=== PATIENT | male | born 1955 | race Caucasian/White ===

== ENCOUNTER 2021-12-25 09:54 | Emergency (ER) | payer MEDICARE ==
[~2021-12-25] VITALS: Ht 175.3 cm; Wt 90.9 kg
[~2021-12-25 09:54] MED LIST: HYDR-3972 PO; LISI20TA28 PO; TRIA1CAP88 PO
[2021-12-25] MEDS ORDERED: ondansetron/PF 4mg/2ml inj IV ONE (10:15)
[2021-12-25] MEDS ORDERED: morphine 4 MG/ML inj SYRINge IV ONE ×2 (10:15→12:00)
[2021-12-25] MEDS ORDERED: normal saline 1000ml 1,000 ML IV ONE (10:15)
[2021-12-25 10:32] LABS: HEMOGLOBIN 15.4 g/dl (14.0-17.9); LYMPHOCYTES # (AUTO) 0.8 X10'3 (1.1-4.8); LYMPHOCYTES % (AUTO) 15.3 % (21-51); MEAN PLATELET VOLUME 8.3 FL (7.4-10.4); WHITE BLOOD COUNT 5.1 X10'3 (4.5-11.0)
[2021-12-25 10:34] LABS: BASOPHILS % (AUTO) 0.6 % (0-1); EOSINOPHILS # (AUTO) 0.2 X10'3 (0-0.9); EOSINOPHILS % (AUTO) 3.9 % (0-6); MEAN CORPUSCULAR HGB CONC 33.6 g/dL (33.0-36.5); MEAN CORPUSCULAR VOLUME 92.3 FL (78-98); MONOCYTES # (AUTO) 0.4 X10'3 (0-0.9); MONOCYTES % (AUTO) 7.6 % (2-12); NEUTROPHILS # (AUTO) 3.7 X10'3 (1.8-7.7); NEUTROPHILS % (AUTO) 72.6 % (42-75); PLATELET COUNT 170 X10'3 (140-440); RED BLOOD COUNT 4.98 X10'6 (4.70-6.10); RED CELL DISTRIBUTION WIDTH 13.6 % (11.5-14.5)
[2021-12-25 10:41] LABS: CLARITY,URINE TURBID (Clear); COLOR,URINE YELLOW (Yellow); GLUCOSE, URINE NEGATIVE (Neg); KETONES,URINE NEGATIVE (Neg); LEUKOCYTE ESTERASE ,URINE NEGATIVE (Neg); NITRITES, URINE NEGATIVE (Neg); OCCULT BLOOD,URINE LARGE (Neg); PH,URINE 5.5 (4.8-8.0); PROTEIN,URINE 30 mg/dl (Neg); UROBILINOGEN,URINE 0.2 E.U/dL (0.2-1.0)
[2021-12-25 10:45] LABS: UA COLLECTION TYPE CLN CATCH MIDSTREAM
--- NOTE | 2021-12-25 10:46 | NUR ---
pt to ct
[2021-12-25 10:50] LABS: ALANINE AMINOTRANSFERASE 27 U/L (12-78); ALBUMIN 4.1 G/DL (3.4-5.0); ALBUMIN/GLOBULIN RATIO 1.3 (1.1-1.5); ALKALINE PHOSPHATASE 66 IU/L (46-116); ANION GAP 11 (8-16); ASPARTATE AMINO TRANSFERASE 19 U/L (10-37); BILIRUBIN,TOTAL 0.9 MG/DL (0.1-1.0); BLOOD UREA NITROGEN 21 MG/DL (7-18); BUN/CREATININE RATIO 16.8 (5.4-32.0); CALCIUM 9.1 MG/DL (8.5-10.1); CHLORIDE 108 MMOL/L (99-107); CREATININE 1.25 MG/DL (0.60-1.10); GLUCOSE 120 MG/DL (70-104); LIPASE 64 U/L (73-393); SODIUM 142 MMOL/L (135-145); TOTAL CARBON DIOXIDE 22.7 MMOL/L (24-32); TOTAL PROTEIN 7.3 G/DL (6.4-8.2); eGFR 57 ML/MIN
--- NOTE | 2021-12-25 10:57 | NUR ---
back from ct
[2021-12-25 11:05] LABS: BACTERIA,URINE FEW /HPF (Neg); RBC,URINE TNTC /HPF (0-2)
[2021-12-25 11:06] LABS: MUCUS STRANDS MODERATE /LPF (Neg); SQUAMOUS EPITHELIAL CELL,UR FEW /LPF (FEW)
[2021-12-25] MEDS ORDERED: ketorolac trometh. 30mg/ml inj. IV ONE (11:10)
[2021-12-25] MEDS ORDERED: tamsulosin 0.4mg capsule PO STA (11:40)
[2021-12-25 11:42] VITALS: BP 166/96
[2021-12-25] MEDS ORDERED: OXYC-138 PO ×2 (12:58→17:43)
[2021-12-25] MEDS ORDERED: ONDA4TAB12 PO ×2 (12:58)
[2021-12-25] MEDS ORDERED: SILO4CAP3 PO ×2 (12:58)
[2021-12-25] MEDS ORDERED: ondansetron 4mg rapidly disintigrating tab PO ONE (13:00)
[2021-12-25] MEDS ORDERED: oxyCODONE/APAP 10/325mg tablet PO ONE (13:00)
== END 2021-12-25 13:16 | disposition home or self-care (01) ==
LOC: ER 09:55
DX: N20.0 Calculus of kidney (principal); R11.2 Nausea with vomiting, unspecified; R10.32 Left lower quadrant pain; Z88.8 Allergy status to other drugs, medicaments and biological substances; Z79.899 Other long term (current) drug therapy
CPT/HCPCS: 36415; 74176; 80053; 81001; 83690; 85025; 87088; 96361; 96374; 96375; 96376; 99284; J1885; J2270; J2405; J7030

== ENCOUNTER 2021-12-29 14:02 | Inpatient (IN) | payer MEDICARE ==
[2021-12-29] VITALS (7 sets, daily range): BP systolic 106–140; BP diastolic 74–94
[~2021-12-29] VITALS: Ht 175.3 cm; Wt 90.9 kg
[~2021-12-29 14:02] MED LIST changes: +ONDA4TAB12 PO; +OXYC-138 PO; +SILO4CAP3 PO
[2021-12-29] MEDS ORDERED: normal saline 1000ML IV soln IVB ONE (15:05)
[2021-12-29] MEDS ORDERED: ketorolac trometh. 30mg/ml inj. IV ONE (15:05)
[2021-12-29 15:50] LABS: ANION GAP 8 (8-16); CHLORIDE 100 MMOL/L (99-107); GLUCOSE 130 MG/DL (70-104); POTASSIUM 4.3 MMOL/L (3.5-5.1); SODIUM 136 MMOL/L (135-145)
[2021-12-29 15:51] LABS: ALANINE AMINOTRANSFERASE 20 U/L (12-78); ALBUMIN 3.8 G/DL (3.4-5.0); ALKALINE PHOSPHATASE 62 IU/L (46-116); ASPARTATE AMINO TRANSFERASE 15 U/L (10-37); BILIRUBIN,TOTAL 0.8 MG/DL (0.1-1.0); BLOOD UREA NITROGEN 18 MG/DL (7-18); BUN/CREATININE RATIO 11.1 (5.4-32.0); CREATININE 1.62 MG/DL (0.60-1.10); TOTAL PROTEIN 7.5 G/DL (6.4-8.2); eGFR 43 ML/MIN
[2021-12-29 16:16] LABS: BASOPHILS % (AUTO) 0.5 % (0-1); EOSINOPHILS % (AUTO) 0.2 % (0-6); HEMATOCRIT 40.1 % (42.0-52.0); HEMOGLOBIN 13.6 g/dl (14.0-17.9); LYMPHOCYTES # (AUTO) 0.4 X10'3 (1.1-4.8); LYMPHOCYTES % (AUTO) 5.4 % (21-51); MEAN CORPUSCULAR HEMOGLOBIN 31.2 PG (27.0-31.0); MEAN CORPUSCULAR HGB CONC 33.9 g/dL (33.0-36.5); MEAN PLATELET VOLUME 7.7 FL (7.4-10.4); MONOCYTES # (AUTO) 0.9 X10'3 (0-0.9); MONOCYTES % (AUTO) 11.5 % (2-12); NEUTROPHILS # (AUTO) 6.2 X10'3 (1.8-7.7); NEUTROPHILS % (AUTO) 82.4 % (42-75); PLATELET COUNT 157 X10'3 (140-440); RED BLOOD COUNT 4.35 X10'6 (4.70-6.10); RED CELL DISTRIBUTION WIDTH 13.6 % (11.5-14.5); WHITE BLOOD COUNT 7.5 X10'3 (4.5-11.0)
[2021-12-29 17:34] LABS: CLARITY,URINE CLEAR (Clear); GLUCOSE, URINE NEGATIVE (Neg); KETONES,URINE NEGATIVE (Neg); LEUKOCYTE ESTERASE ,URINE NEGATIVE (Neg); NITRITES, URINE NEGATIVE (Neg); OCCULT BLOOD,URINE MODERATE (Neg); PH,URINE 5.5 (4.8-8.0); PROTEIN,URINE NEGATIVE (Neg); UROBILINOGEN,URINE 0.2 E.U/dL (0.2-1.0)
[2021-12-29 17:37] LABS: COLOR,URINE STRAW (Yellow); UA COLLECTION TYPE CLN CATCH MIDSTREAM
[2021-12-29 17:40] LABS: BACTERIA,URINE NONE SEEN /HPF (Neg); MUCUS STRANDS NONE SEEN /LPF (Neg); RBC,URINE 0-2 /HPF (0-2); SQUAMOUS EPITHELIAL CELL,UR NONE SEEN /LPF (FEW); WBC,URINE 0-4 /HPF (0-4)
[2021-12-29] MEDS ORDERED: CefTRIAXone 2gm/D5W 50ml BAG 50 ML IV ONE (17:40)
[2021-12-29] MEDS ORDERED: HYDROcodone/acetaminophen 5mg/325mg tablet PO PRN (18:30)
[2021-12-29] MEDS ORDERED: magnesium Cl slow-release 64mg tablet PO PRN (18:30)
[2021-12-29] MEDS ORDERED: HYDROcodone/acetaminophen 10/325mg tab PO PRN (18:30)
[2021-12-29] MEDS ORDERED: magnesium 2GM in 50ml NS 50 ML IV PRN (18:30)
[2021-12-29] MEDS ORDERED: acetaminophen 650mg rectal suppository RC PRN (18:30)
[2021-12-29] MEDS ORDERED: potassium CL 10mEq/100ml bag 100 ML IV PRN (18:30)
[2021-12-29] MEDS ORDERED: POTASSIUM BICARB 20meq eff tab 20 MEQ TABLET.EFF PO PRN ×2 (18:30)
[2021-12-29] MEDS ORDERED: morphine 2 MG/ML inj. syringe IV PRN ×3 (18:30→19:00)
[2021-12-29] MEDS ORDERED: mag hydrox/Alum hydrox/simeth 30ml oral suspension PO PRN (18:30)
[2021-12-29] MEDS ORDERED: bisacodyl 10mg suppository rectal RC PRN (18:30)
[2021-12-29] MEDS ORDERED: acetaminophen 325mg tablet PO PRN ×2 (18:30)
[2021-12-29] MEDS ORDERED: magnesium hydroxide 30ml (MOM) UD suspension PO PRN (18:30)
[2021-12-29] MEDS ORDERED: diphenhydrAMINE 25mg capsule PO PRN (18:30)
[2021-12-29] MEDS ORDERED: magnesium 4gm in 100ml NS 100 ML IV PRN (18:30)
[2021-12-29] MEDS ORDERED: ondansetron/PF 4mg/2ml inj IV PRN ×2 (18:30→19:00)
[2021-12-29] MEDS: normal saline 1000ml 1,000 ML IV SCH (18:44)
[2021-12-29 18:48] LABS: HEMOGLOBIN A1C 5.8 % (4.5-6.2)
[2021-12-29] MEDS ORDERED: hydrALAZINE 20mg/ml inj. IV ONE (18:50)
[2021-12-29] MEDS ORDERED: hydrALAZINE 20mg/ml inj. IV PRN ×2 (18:50→19:00)
[2021-12-29] MEDS ORDERED: FLO0.4C PO (18:59)
[2021-12-29] MEDS ORDERED: CA C1TAB70 PO (18:59)
[2021-12-29] MEDS ORDERED: VALS80TA32 PO (18:59)
[2021-12-29] MEDS ORDERED: labetalol 20mg/4ml (5mg/ml) syringe IV PRN (19:00)
[2021-12-29] MEDS ORDERED: morphine 4 MG/ML inj SYRINge IV PRN (19:00)
[2021-12-29] MEDS ORDERED: fentaNYL/PF 50MCG/1 ML 2ML syringe IV PRN ×2 (19:00)
[2021-12-29] MEDS ORDERED: ringers solution, lacted 1,000 ML IV SCH (19:00)
[2021-12-29] MEDS ORDERED: K and/or MAG REPLACEMENT MC SCH (20:00)
[2021-12-29] MEDS: docusate sod 100mg capsule PO SCH (20:42)
[2021-12-29] MEDS ORDERED: losartan 50mg tablet PO SCH (21:00)
[2021-12-29] MEDS ORDERED: ALOE PO SCH (21:00)
[2021-12-29] MEDS ORDERED: CHOLECALCIFEROL PO SCH (21:00)
[2021-12-29] MEDS ORDERED: triamterene/HCTZ 37.5/25mg tablet PO SCH (21:00)
[2021-12-29] MEDS ORDERED: iohexol 350MG/ML 100ml bottle IV ONE (21:56)
[2021-12-29] MEDS ORDERED: HYDR-3965 PO (22:12)
[2021-12-29] MEDS ORDERED: CEPH500C2 PO (22:12)
[2021-12-29] MEDS ORDERED: sevoflurane 250ml liquid IH ONE (22:22)
[2021-12-29] MEDS ORDERED: dexamethasone sod phosphate 10mg/ml inj ONE (22:22)
[2021-12-29] MEDS ORDERED: fentaNYL/PF 50MCG/1 ML 2ML syringe ONE (22:26)
[2021-12-29] MEDS ORDERED: ceFAZolin 1000mg inj ONE ×2 (22:27)
[2021-12-29] MEDS ORDERED: ondansetron/PF 4mg/2ml inj ONE (22:27)
[2021-12-29] MEDS ORDERED: propofol inj 20 ML IV ONE (22:27)
[2021-12-29] MEDS ORDERED: LIDOcaine 2% (20mg/ml) 5ml vial ONE (22:27)
--- NOTE | 2021-12-29 22:53 | NUR ---
Received from OR via BED, accompanied by Anesthesiologist DR LOCKHART and report given by Anesthesiologist AND ZIPPER SETTER LOCKSTITCH. PT DROWSY, NO S/S OF DISTRESS/DISCOMFORT. NO DRAINS OR DRSG'S. Addendum: 12/29/21 at 2313 by Dayami Miguel RN Amended: Links added.
[2021-12-30] VITALS (10 sets, daily range): BP systolic 118–167; BP diastolic 73–97
--- NOTE | 2021-12-30 00:13 | NUR ---
PER DR MUJICA PT WAS TO BE D/CD TO HOME AND ER MD WAS GOING TO SEND IN POST OP PRESCRIPTIONS. PT D/C INSTRUCTIONS GIVEN AND GONE OVER W/PT AND PTS WHO VERBALIZED UNDERSTANDING. PTS IV DC'D. TRANSPORTED PT DOWN TO PARKING LOT FOR D/C HOME, PTS DAUGHTER WHO WORKS IN OUR ER CAME OUT AND MET US, SHE INFORMED ME THAT THE HOSPITALIST HAD ADMITTED PT AND SHE SPOKE W/HIM AND THAT THE PT IS TO BE ADMITTED AND NOT D/CD TO HOME. BROUGHT PT BACK TO PACU AND CALLED Report to receiving nurse. Transferred via W/C W/CLOTHING ON AND CELL PHONE. RECEIVING RN AT BEDSIDE TO RECEIVE PT. Special Issues communicated to receiving nurse. YES. Addendum: 12/30/21 at 0022 by Dayami Miguel RN Amended: Links added.
--- NOTE | 2021-12-30 00:29 | NUR ---
Patient in room ORTHO 4015. I have received report from NANCY Stock and had the opportunity to ask questions and assume patient care.
[2021-12-30] MEDS: normal saline 1000ml 1,000 ML IV SCH ×2 (01:01→09:20)
--- NOTE | 2021-12-30 06:23 | NUR ---
Problems reprioritized. Patient report given, questions answered & plan of care reviewed with NANCY Sanchez.
[2021-12-30 06:37] LABS: ALANINE AMINOTRANSFERASE 43 U/L (12-78); ALBUMIN 3.2 G/DL (3.4-5.0); ALBUMIN/GLOBULIN RATIO 0.9 (1.1-1.5); ALKALINE PHOSPHATASE 82 IU/L (46-116); ANION GAP 8 (8-16); ASPARTATE AMINO TRANSFERASE 31 U/L (10-37); BILIRUBIN,TOTAL 0.4 MG/DL (0.1-1.0); BLOOD UREA NITROGEN 18 MG/DL (7-18); BUN/CREATININE RATIO 15.8 (5.4-32.0); CALCIUM 8.5 MG/DL (8.5-10.1); CHLORIDE 106 MMOL/L (99-107); CHOL/HDL RATIO 2.6 (0.00-4.99); CHOLESTEROL 142 MG/DL (0-200); CREATININE 1.14 MG/DL (0.60-1.10); GLUCOSE 174 MG/DL (70-104); HDL CHOLESTEROL 54 MG/DL (35-60); LDL CHOLESTEROL 72 MG/DL (50-100); MAGNESIUM 2.3 MG/DL (1.5-2.4); PHOSPHORUS 2.3 MG/DL (2.3-4.5); POTASSIUM 4.7 MMOL/L (3.5-5.1); SODIUM 141 MMOL/L (135-145); TOTAL CARBON DIOXIDE 27.1 MMOL/L (24-32); TOTAL PROTEIN 6.8 G/DL (6.4-8.2); TRIGLYCERIDES 57 MG/DL (20-135); eGFR 64 ML/MIN
--- NOTE | 2021-12-30 07:33 | NUR ---
Patient in room ORTHO 4014. I have received report from Nathalie and had the opportunity to ask questions and assume patient care.
[2021-12-30 07:54] LABS: BASOPHILS % (AUTO) 0.1 % (0-1); EOSINOPHILS % (AUTO) 0 % (0-6); HEMATOCRIT 43.3 % (42.0-52.0); HEMOGLOBIN 14.7 g/dl (14.0-17.9); LYMPHOCYTES # (AUTO) 0.3 X10'3 (1.1-4.8); LYMPHOCYTES % (AUTO) 5.9 % (21-51); MEAN CORPUSCULAR HEMOGLOBIN 31.3 PG (27.0-31.0); MEAN CORPUSCULAR VOLUME 92.1 FL (78-98); MONOCYTES # (AUTO) 0.2 X10'3 (0-0.9); MONOCYTES % (AUTO) 2.9 % (2-12); NEUTROPHILS # (AUTO) 5.4 X10'3 (1.8-7.7); NEUTROPHILS % (AUTO) 91.1 % (42-75); RED CELL DISTRIBUTION WIDTH 13.6 % (11.5-14.5); WHITE BLOOD COUNT 5.9 X10'3 (4.5-11.0)
[2021-12-30 07:56] LABS: PLATELET COUNT 136 X10'3 (140-440)
[2021-12-30] MEDS ORDERED: tamsulosin 0.4mg capsule PO SCH (08:00)
[2021-12-30] MEDS ORDERED: CefTRIAXone/D5W-Rocephin 1gm 50 ML IV SCH (08:00)
[2021-12-30] MEDS: docusate sod 100mg capsule PO SCH (08:46)
[2021-12-30] MEDS ORDERED: CEFD300C3 PO (12:01)
[2021-12-30] MEDS ORDERED: LACT1CAP55 PO (12:01)
--- NOTE | 2021-12-30 12:30 | NUR ---
Patient discharged at this time. Patient taught about his antibiotics and to follow up with Dr. Hayes and pcp as Dr. Black ordered. Patient states he still has 25 norco at home that he just got filled last week,; (family was asking for norco order) Also daughter Jillian took patient wallet this morning.
== END 2021-12-30 12:30 | disposition home or self-care (01) | DRG 661 ==
LOC: ER 14:02 → ED HOLD 18:31 → ORTHO 4S 12-30 00:25
PROVIDERS: ADMIT Family Medicine; ATTEND Family Medicine
PROC: BT1F1ZZ Fluoroscopy of Left Kidney, Ureter and Bladder using Low Osmolar Contrast (ICD-10-PCS; 2021-12-29)
PROC: 0T778DZ Dilation of Left Ureter with Intraluminal Device, Via Natural or Artificial Opening Endoscopic (ICD-10-PCS; principal; 2021-12-29 22:22)
DX: N13.2 Hydronephrosis with renal and ureteral calculous obstruction (principal); G89.4 Chronic pain syndrome; N17.9 Acute kidney failure, unspecified; I10 Essential (primary) hypertension; K76.0 Fatty (change of) liver, not elsewhere classified; F17.290 Nicotine dependence, other tobacco product, uncomplicated; N40.0 Benign prostatic hyperplasia without lower urinary tract symptoms; Z20.822 Contact with and (suspected) exposure to COVID-19; Z79.899 Other long term (current) drug therapy; Z82.3 Family history of stroke; Z82.49 Family history of ischemic heart disease and other diseases of the circulatory system; Z82.5 Family history of asthma and other chronic lower respiratory diseases; Z87.442 Personal history of urinary calculi; Z90.79 Acquired absence of other genital organ(s); Z88.8 Allergy status to other drugs, medicaments and biological substances; Z86.16 Personal history of COVID-19
CPT/HCPCS: 36415; 74176; 74420; 76000; 80053; 80061; 81001; 82948; 83036; 83605; 83735; 84100; 85025; 87040; 87081; 87811; 96374; 97161; 97530; 99285; A4215; A4618; C1758; C2617; G0378; J0360; J0690; J0696; J1100; J1885; J2405; J2704; J3010; J3490; J7030; J7120; Q9967

== ENCOUNTER 2024-08-10 21:08 | Emergency (ER) | payer MEDICARE ==
[~2024-08-10] VITALS: Ht 175.3 cm; Wt 95.4 kg
[~2024-08-10 21:08] MED LIST changes: +CA C1TAB70 PO; -HYDR-3972 PO; +LACT1CAP55 PO; -LISI20TA28 PO; -ONDA4TAB12 PO; -SILO4CAP3 PO; +TAMS-55 PO; +VALS80TA32 PO
[2024-08-10] MEDS: HYDROcodone/acetaminophen 10/325mg tab PO ONE (23:26)
[2024-08-10] MEDS: ketorolac trometh 15mg/ml vial 15 MG/ML ML IM ONE (23:27)
[2024-08-10] MEDS ORDERED: NAPR-1168 PO (23:49)
[2024-08-10] MEDS ORDERED: HYDR-3965 PO (23:49)
[2024-08-11 00:04] VITALS: BP 147/97; PULSE 88; RESP 19; O2SAT 100
== END 2024-08-11 00:08 | disposition home or self-care (01) ==
LOC: ER 21:08
DX: M25.461 Effusion, right knee (principal); I10 Essential (primary) hypertension; Z87.442 Personal history of urinary calculi; Z87.440 Personal history of urinary (tract) infections
CPT/HCPCS: 96372; 99283; J1885

== ENCOUNTER 2024-08-25 23:02 | Emergency (ER) | payer MEDICARE ==
[~2024-08-25] VITALS: Ht 175.3 cm; Wt 78.2 kg
[~2024-08-25 23:02] MED LIST changes: +HYDR-3965 PO; +NAPR-1168 PO
[2024-08-25 23:33] VITALS: TEMP 97.6
[2024-08-25 23:52] LABS: BASOPHILS # (AUTO) 0.1 X10'3 (0-0.2); BASOPHILS % (AUTO) 0.9 % (0-1); EOSINOPHILS # (AUTO) 0.3 X10'3 (0-0.9); EOSINOPHILS % (AUTO) 4.9 % (0-6); HEMATOCRIT 41.8 % (42.0-52.0); HEMOGLOBIN 14.7 g/dl (14.0-17.9); LYMPHOCYTES # (AUTO) 1.6 X10'3 (1.1-4.8); LYMPHOCYTES % (AUTO) 26.8 % (21-51); MEAN CORPUSCULAR HEMOGLOBIN 32.3 PG (27.0-31.0); MEAN CORPUSCULAR HGB CONC 35.2 g/dL (33.0-36.5); MEAN CORPUSCULAR VOLUME 91.7 FL (78-98); MEAN PLATELET VOLUME 7.6 FL (7.4-10.4); MONOCYTES # (AUTO) 0.5 X10'3 (0-0.9); MONOCYTES % (AUTO) 7.9 % (2-12); NEUTROPHILS # (AUTO) 3.6 X10'3 (1.8-7.7); NEUTROPHILS % (AUTO) 59.5 % (42-75); PLATELET COUNT 189 X10'3 (140-440); RED BLOOD COUNT 4.56 X10'6 (4.70-6.10); RED CELL DISTRIBUTION WIDTH 13.6 % (11.5-14.5)
[2024-08-26 00:06] LABS: ALANINE AMINOTRANSFERASE 32 U/L (12-78); ALBUMIN 4.1 G/DL (3.4-5.0); ALBUMIN/GLOBULIN RATIO 1.3 (1.1-1.5); ALKALINE PHOSPHATASE 71 IU/L (46-116); ANION GAP 9 (8-16); ASPARTATE AMINO TRANSFERASE 22 U/L (10-37); BILIRUBIN,TOTAL 0.7 MG/DL (0.1-1.0); BLOOD UREA NITROGEN 25 MG/DL (7-18); BUN/CREATININE RATIO 19.4 (10.0-20.0); CALCIUM 8.7 MG/DL (8.5-10.1); CHLORIDE 107 MMOL/L (99-107); CREATININE 1.29 MG/DL (0.60-1.10); GLUCOSE 126 MG/DL (70-104); LIPASE 39 U/L (16-77); POTASSIUM 3.7 MMOL/L (3.5-5.1); SODIUM 144 MMOL/L (135-145); TOTAL CARBON DIOXIDE 27.6 MMOL/L (24-32); TOTAL PROTEIN 7.2 G/DL (6.4-8.2); eCRCL 53 ML/MIN; eGFR 55 ML/MIN
[2024-08-26 00:07] LABS: CLARITY,URINE BLOODY (Clear); COLOR,URINE RED (Yellow); UA COLLECTION TYPE CLN CATCH MIDSTREAM
[2024-08-26 00:11] LABS: BACTERIA,URINE NONE SEEN /HPF (Neg); RBC,URINE TNTC /HPF (0-2); SQUAMOUS EPITHELIAL CELL,UR NONE SEEN /LPF (FEW); WBC,URINE 0-4 /HPF (0-4)
[2024-08-26] MEDS ORDERED: iohexol 300mg/ml 100ml inj. ONE (02:24)
--- NOTE | 2024-08-26 03:52 | Physician Documentation ---
History of Present Illness ~ Chief Complaint: Blood in Urine Stated Complaint: BLOOD IN URINE Time Seen by MD: 01:14 Primary Medical Doctor: judy Mode of Arrival: Ambulatory HPI This is a very pleasant 69-year-old gentleman who comes in for evaluation of hematuria. On and off for the last several days, had some PCP. Was advised to go to the emergency department if the symptoms get worse or continue. He states that while yesterday he apparently had any hematuria, today it appears that he was urinating gross blood. No obvious trigger provocation. It is painless, but there is some discomfort suprapubically. This never happened in the past. He does have history of hypotension, but otherwise does not have any significant medical history and does not take any blood thinners. Denies lightheadedness, chest pain, difficulty breathing. Medication Reconciliation Allergies: Coded Allergies: propoxyphene (Verified Allergy, Unknown, 08/25/24) Scheduled Ca Cmb 1/Vit D3/B-6/FA/B12/Av (Vitamin D3-Aloe 1,000 Unit Tab), 3,000 UNITS PO HS, (Reported) L. Rhamnosus GG/Inulin (Culturelle Capsule), 1 CAP PO DAILY Naproxen (Naproxen), 1 TAB PO Q12H Tamsulosin Hcl* (Flomax*), 0.4 MG PO DAILY, (Reported) Triamterene/Hydrochlorothiazid (Triamterene-Hctz 37.5-25 Mg Cp), 1 TAB PO HS, (Reported) Valsartan (Valsartan), 1 TAB PO HS, (Reported) Scheduled PRN Hydrocodone Bit/Acetaminophen 5/325 MG ([place] 5/325 MG), 1 TAB PO Q6H PRN for pain Oxycodone HCl/Acetaminophen (Endocet 10-325 mg Tablet), 1 TAB PO Q4H PRN for pain Past Medical History Past Medical History: Hypertension, Kidney Stones Past Surgical History: abdominal surgery, orthopedic surgeries Smoking Status: Never smoker Alcohol Use: Rarely Drug Use: none Lives with: Spouse Lives In: Home Occupation: retired Review of Systems ROS 10 point review of systems was performed and unless noted above in HPI is negative for acute process/complaint. Physical Exam Vital Signs: Temperature: 97.6, Source: Temporal, Heart Rate: 76, Respiratory Rate: 16, BP: 136/85, Pulse Oximetry: 99, Weight: 78.250 Physical Exam Physical examination: GENERAL: Awake, alert, oriented, GCS 15, no apparent distress, non-toxic appearing, answers questions, follows commands appropriately. HEENT: Atraumatic, normocephalic, pupils equal, extraocular muscles intact Active gross movements, sclerae anicteric, mucus membranes moist, no stridor. NECK: Midline, no JVD CARDIOVASCULAR: Good skin perfusion without evidence of pallor, mottling. PULMONARY: Nonlabored, symmetric chest rise, no audible wheezing, no accessory muscle use, no respiratory distress, speaking in full sentences. GASTROINTESTINAL: Not distended. NEUROLOGIC: Lucid with normal mental status. Normal facial symmetry. Moves all extremities symmetrically and with purpose. No truncal ataxia. Speech is fluid without evidence of dysarthria or aphasia, no focal deficits appreciated. EXTREMITIES: Acute deformities Skin: warm, dry PSYCHIATRIC: Normal affect, normal insight, normal concentration. Focused exam: [] Progress Results/Orders Results/Orders Orders - GUILLE LORD DO Ct Abdomen Pelvis (08/26/24 02:30) Completed Orders - GUILLE LORD DO Cbc/Diff (08/25/24 23:35) BMP (08/25/24 23:35) Lipase (08/25/24 23:35) CMP (08/25/24 23:35) Ua W/Microscopic, Cult If Ind (08/25/24 23:38) Ct Abdomen Pelvis (08/26/24 02:30) Iohexol 300mg/Ml 100ml Inj. (Omnipaque-3 (08/26/24 02:24) Vital Signs 08/25/24 08/26/24 08/26/24 08/26/24 23:33 01:28 02:30 03:30 Temp 97.6 Pulse 76 69 70 Resp 15 16 14 14 B/P (MAP) 136/85 138/90 (106) 136/85 (102) Pulse Ox 99 99 98 08/26/24 04:37 Pulse 68 Resp 12 B/P (MAP) 132/81 (98) Pulse Ox 98 Laboratory Tests Test 08/25/24 23:38 08/25/24 23:43 Urine Specimen Description Cln catch midstream Urine Color Red Urine Clarity Bloody Urine pH Urine Specific [place] Urine Protein Urine Glucose (UA) Urine Ketones Urine Occult Blood Urine Nitrite Urine Bilirubin Urine Urobilinogen Urine Leukocyte Esterase Urine RBC Tntc Urine WBC 0-4 Urine Squamous Epithelial Cells None seen Urine Bacteria None seen Urine Culture Indicated Not ind Volume Urine Centrifuged 10 ml Urine Comment White Blood Count 6.0 Red Blood Count 4.56 L Hemoglobin 14.7 Hematocrit 41.8 L Mean Corpuscular Volume 91.7 Mean Corpuscular Hemoglobin 32.3 H Mean Corpuscular Hemoglobin Concent 35.2 Red Cell Distribution Width 13.6 Platelet Count 189 Mean Platelet Volume 7.6 Neutrophils (%) (Auto) 59.5 Lymphocytes (%) (Auto) 26.8 Monocytes (%) (Auto) 7.9 Eosinophils (%) (Auto) 4.9 Basophils (%) (Auto) 0.9 Neutrophils # (Auto) 3.6 Lymphocytes # (Auto) 1.6 Monocytes # (Auto) 0.5 Eosinophils # (Auto) 0.3 Basophils # (Auto) 0.1 CBC Comment Sodium Level 144 Potassium Level 3.7 Chloride Level 107 Carbon Dioxide Level 27.6 Anion Gap 9 Blood Urea Nitrogen 25 H Creatinine 1.29 H Estimated GFR/1.73 m2 55 BUN/Creatinine Ratio 19.4 Glucose Level 126 H Calcium Level 8.7 Total Bilirubin 0.7 Aspartate Amino Transf (AST/SGOT) 22 Alanine Aminotransferase (ALT/SGPT) 32 Alkaline Phosphatase 71 Total Protein 7.2 Albumin 4.1 Globulin 3.1 Albumin/Globulin Ratio 1.3 Lipase 39 Chemistry Comments Medical Decision Making Findings Facility Status: ED [facility], [facility] process The plan was discussed with the patient, who demonstrates clear understanding of the plan and is in agreement with the plan unless otherwise noted in the chart. All questions have been answered, all concerns were addressed unless otherwise documented. I was available throughout their ED stay for frequent reassessment and questions. Differential Diagnoses (considered and possible or likely): [Idiopathic hematuria, UTI/hemorrhagic cystitis, bladder tumor, renal cancer, given painless nature kidney stone is less likely, renal trauma is unlikely as none was reported by the patient] ??Differential Diagnoses (considered and unlikely, not requiring evaluation currently): [See above] MDM Data Please see HPI for the following: Independent Historians and external Records Review. Historian: [Patient] Independent Historians: ?[] Medication Management: [Reviewed medication list] Social History and determinants: [Reviewed] Please see the body of the note for the following: Any independent interpretations of ECG, imaging studies. All vitals signs/haemodynamics, ordered tests were independently reviewed and interpreted by myself. Nursing triage complaint and vitals reviewed, additional nursing notes were reviewed as available and I agree unless otherwise noted or documented in contradiction in the chart Vital Signs: Independently reviewed Labs: Independently interpreted Imaging: Independently interpreted Old Medical Records: Independently reviewed, see HPI for relevant summary and information Pulse Oximetry: [95%] interpreted as [normal on room air] by me [Dog Or Animal Sitter: Bradycardic Rate, Regular rhythm, no ectopy, NSR] reviewed and interpreted by me] Additionally notably showing: [Hemodynamically the patient is stable. Laboratory workup notable for gross hematuria. Otherwise unremarkable. CT imaging shows no explanation for gentleman was hematuria. Incidentally prostatomegaly noted as expected. Tests considered but not ordered include: [Not applicable] Social Determinants of Health Impact: Patient was evaluated in [facility], [facility] [place] access to healthcare due to below par ratio of patient to medical providers. [] Comorbid Conditions Impacting Present Evaluation and Care/Treatment: [None reported patient] Management Discussions with other Healthcare Providers: [] Treatment and Disposition Medication Management (Given or considered): []. See EMR for details Consideration for Hospitalization/Escalation/Deescalation of Care: Admission for observation has been considered, [however the patient is able to tolerate p.o., their symptoms are controlled, they are able to rely on oral medications, and their chief complaint/diagnosis can be managed on outpatient basis.] ?ED Course:?[No clinical deterioration. Patient will be discharged home with a referral entry.] ?Shared decision making:? Patient is hemodynamically stable for discharge home with follow with their primary care provider. [ ] Specific and cautious return precautions provided and discussed with full understanding. Any incidental findings were also discussed and follow up recommendations given. [] All questions answered. Patient/family were able to verbalize back return precautions. Patient/family agree to plan. Copies of imaging and laboratory studies were provided. Code status:?FULL Please see the full Electronic Medical Record for full details of nursing documentation, medications list, other records of complete past medical history and conditions, vital signs, laboratory studies, and any radiologic study interpretations by radiologists. Portions of this note were completed using [employer] dictation software and as a result there may exist minor errors in spelling. I have reviewed elements of past family and social history and agree as included in note. Departure Disposition: 01 HOME / SELF CARE / HOMELESS Impression: Primary Impression: Hematuria Condition: Stable Additional Instructions: There is no explanation for your hematuria. You need to follow-up with urology as soon as possible. You may need school. Return to emergency department if you not able to urinate this is a clean security require intervention. Referrals: CAMPBELL LOJA MD 1 day Please follow-up with the doctor Brit, urologist specialist for your hematuria as soon as possible. Education Educated: Patient Educated regarding: diagnosis, treatment, prognosis, need for follow up Signature Scribe Signature: No scribe Attestation: This note accurately reflects clinical decisions, work performed by myself, DO POP Red NICHOLAS M DO August 26, 2024 03:52
--- NOTE | 2024-08-26 04:48 | RADIOLOGY REPORT ---
EXAM: CT CT ABDOMEN PELVIS W/ IV CONTRAST HISTORY: hematuria COMPARISON: CT ABDOMEN PELVIS on DOS: 12/29/21, CT ABDOMEN PELVIS on DOS: 12/25/21 TECHNIQUE: Helical CT images of the abdomen and pelvis were performed with 100 mL omnipaque 350 IV c ontrast. Sagittal and coronal reformatted images were obtained. This CT exam was performed using 1 or more of the following dose reduction techniques: Automated exposure control, adjustment of the mA an d/or kv according to patient size, or the use of iterative reconstruction techniques. Radiation Dose Information: CT Dose: CTDI volume is 29.57 mGy. Dose-length product is 1608.98 mGy*cm FINDINGS: CT abdomen: There is scarring and/or atelectasis in the bilateral lower lobes. The heart is nonenlarg ed. There are coronary artery calcifications. There are bilateral renal cysts and subcentimeter nono bstructing calculi. The liver, spleen, gallbladder, pancreas, and adrenal glands are unremarkable. No abdominal aortic aneurysm or dissection. CT pelvis: No abnormal bowel dilatation, free air, or free fluid. The prostate is mildly enlarged and exerts mass effect on the urinary bladder lumen. The appendix is not dilated. There is fecal reten tion in the colon. There are bilateral fatty inguinal indirect hernias, larger on the right. There i s advanced lower lumbar degenerative disc disease and facet arthropathy. There is moderate osteoarthr itis of the hips. IMPRESSION: 1. Coronary artery disease. 2. Bilateral renal nonobstructing calculi and simple cysts. 3. Fecal retention in the colon suggestive of constipation. 4. Mild prostatic enlargement with mass effect on the urinary bladder lumen. Recommend nonemergent u rology consultation if not already obtained. 5. No evidence of bowel obstruction, acute appendicitis, or other acute process in the abdomen or pel vis.
[2024-08-26 05:29] VITALS: BP 132/85; PULSE 82; RESP 14; O2SAT 98
== END 2024-08-26 05:32 | disposition home or self-care (01) ==
LOC: ER 23:03
DX: R31.9 Hematuria, unspecified (principal); I10 Essential (primary) hypertension; Z87.440 Personal history of urinary (tract) infections
CPT/HCPCS: 36415; 74177; 80053; 81001; 83690; 85025; 99285; Q9967; 81003